=== PATIENT | male | born 1975 | race Caucasian/White ===

== ENCOUNTER 2018-08-20 16:57 | Emergency (ER) | payer SELFPAY ==
[2018-08-20] MEDS ORDERED: Morphine 2 MG/ML Syringe IVPUSH ONE (17:09)
[2018-08-20] MEDS ORDERED: Diphtheria,Pertussis(Acell),Tetanus Vaccine 0.5 ML Syringe IM ONE (17:09)
[2018-08-20] MEDS ORDERED: cefTRIAXone 1 GM in Premix Bag 1 BAG IV ONE (17:42)
--- NOTE | 2018-08-20 18:04 | CR ---
2 views of the left wrist. INDICATION: Injury. Extensive soft tissue injury IMPRESSION: IMPRESSION: Metallic foreign body projecting at the base of the 1st metacarpal. Large soft tissue injury in the distal forearm on the ventral aspect. No osseous fracture. There are linear metallic body with increased density overlapping the soft tissues at the level of the distal shaft of the ulna. However this is only seen on the frontal view. Dictated by Dmitriy Pope MD @ Aug 20 2018 6:02PM Signed by Dr. Dmitriy Pope @ Aug 20 2018 6:04PM
[2018-08-20] MEDS ORDERED: Lidocaine 1% 10 ML MDV INJECT ONE (18:19)
[2018-08-20] MEDS ORDERED: Bacitracin Oint 1 GM U/D Packet TOP ONE (19:22)
[2018-08-20] MEDS ORDERED: Bacitracin Oint 1 GM U/D Packet ONE (19:24)
--- NOTE | 2018-08-20 19:26 | EDM.PDOC ---
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, he slipped bumping his left wrist on the active grinder gear wheel presents with gaping laceration on the anterior forearm 2 inches of the wrist, deep muscle tissue is involved however tendon function flexor and extensor is intact the entire limb neurovascularly intact Entire limb neurovascularly intact with normal capillary refill no bleeding on arrival, full motor and sensory is intact however he does describe numbness and tingling sensation to the tips of all fingers No fever nausea vomiting chills sweats no chest pain shortness breath headache dizziness palpitation no bowel or urine symptoms Review of systems: As per history of present illness and below otherwise all systems reviewed and negative. Past medical history: As per history of present illness and as reviewed below otherwise noncontributory. Surgical history: As per history of present illness and as reviewed below otherwise noncontributory. Social history: No reported history of drug or alcohol abuse. Family history: As per history of present illness and as reviewed below otherwise noncontributory. Physical exam: HEENT: Atraumatic, normocephalic, pupils reactive, negative for conjunctival pallor or scleral icterus, mucous membranes moist, throat clear, neck supple, nontender, trachea midline. Lungs: Clear to auscultation, breath sounds equal bilaterally, chest nontender. Heart: S1S2, regular, negative for clicks, rubs, or JVD. Abdomen: Soft, nondistended, nontender. Negative for masses or hepatosplenomegaly. Negative for costovertebral tenderness. Pelvis: Stable nontender. Genitourinary: Deferred. Rectal: Deferred. Extremities: Atraumatic, negative for cords or calf pain. Neurovascular unremarkable. Neuro: Awake, alert, oriented. Cranial nerves II through XII unremarkable. Cerebellum unremarkable. Motor and sensory unremarkable throughout. Exam nonfocal. Skin as per history of present illness otherwise unremarkable Diagnostics: [X-ray left wrist rule out foreign body ] Therapeutics: [Morphine 2 mg IV Rocephin 1 g IV Tetanus status is updated] Keflex [place] Wound is cleansed thoroughly and explored no foreign material appreciated Lidocaine 5 mL for anesthesia complications no complaint #5 4-0 Vicryl sutures interrupted to superficial muscle tissue with excellent approximation #10 4-0 Prolene sutures interrupted excellent skin approximation Bacitracin Telfa gauze dressing Cock-up splint for protection [facility] who [facility] formulate plan, pt discussed in detail, to come on he agrees to see him in his clinic at [facility] on Thursday Impression: [ laceration 6 cm linear, complex ] Foreign body noted near left thumb, this was previously known to the patient Definitive disposition and diagnosis as appropriate pending reevaluation and review of above. Left Wrist Pain Score (Numeric/FACES): 10 - Related Data Allergies Allergy/AdvReac Type Severity Reaction Status Date / Time No Known Allergies Allergy Verified 08/20/18 17:04 Home Meds: Home Meds . [No Known Home Meds] 08/20/18 [History] Past Medical History - Past Health History Medical/Surgical History: Denies Medical/Surgical History - Infectious Disease History Infectious Disease History: Reports: Chicken Pox Social & Family History - Family History Family Medical History: Noncontributory - Tobacco Use Smoking Status *Q: Never Smoker Second Hand Smoke Exposure: No - Caffeine Use Caffeine Use: Reports: Coffee - Recreational Drug Use Recreational Drug Use: No ED ROS GENERAL - Review of Systems Review Of Systems: See Below ED EXAM, SKIN/RASH Exam: See Below Course - Vital Signs Last Recorded V/S: Last Vital Signs Temp 98.9 F 08/20/18 17:05 Pulse 97 08/20/18 18:02 Resp 16 08/20/18 18:02 BP 141/87 H 08/20/18 18:02 Pulse Ox 93 L 08/20/18 18:02 - Orders/Labs/Meds Orders: Active Orders 24 hr Category Date Time Status Vaccines to be Administered [RC] PER UNIT ROUTINE Care 08/20/18 17:09 Active Meds: Medications Discontinued Medications Generic Name Dose Route Start Last Admin Trade Name Freq PRN Reason Stop Dose Admin Diphtheria/Tetanus/Acell Pertussis 0.5 ml 08/20/18 17:09 08/20/18 17:18 Adacel IM 08/20/18 17:10 0.5 ml .ONCE ONE Administration Ceftriaxone Sodium/Dextrose 1 50 mls @ 100 mls/hr 08/20/18 17:42 08/20/18 18: 00 gm/ Premix IV 08/20/18 18:11 100 mls/hr ONETIME ONE Administration Lidocaine HCl Confirm 08/20/18 18:23 08/20/18 18:28 Xylocaine-Mpf 1% Administered 08/20/18 18:24 Not Given Dose 10 mls @ as directed .ROUTE .STK-MED ONE Lidocaine HCl 10 ml 08/20/18 18:19 08/20/18 18:28 Xylocaine 1% INJECT 08/20/18 18:20 Not Given ONETIME ONE Lidocaine HCl 10 ml 08/20/18 18:27 Xylocaine-Mpf 1% INJECT 08/20/18 18:28 ONETIME ONE Morphine Sulfate 2 mg 08/20/18 17:09 08/20/18 17:17 Morphine IVPUSH 08/20/18 17:10 2 mg ONETIME ONE Administration Departure - Departure Time of Disposition: 19:26 Disposition: Home, Self-Care 01 Condition: Good Clinical Impression: Laceration - Discharge Information Referrals: PCP,None [Primary Care Provider] - Additional Instructions: Medication as prescribed Keflex 500 by mouth twice a day #20 no refill [place] as prescribed for pain #10 no refill no driving or alcohol on this medication Follow-up with hand specialist [facility], [place] on Thursday, he can be reached with her switchboard at [phone] to schedule clinic appointment in time You have mentioned that you may be traveling back to [place] this weekend and I would strongly urge you to follow-up with a hand specialist if you elect to return home for care on Thursday or with primary care for referral to a hand specialist The following information is given to patients seen in the emergency department who are being discharged to home. This information is to outline your options for follow-up care. We provide all patients seen in our emergency department with a follow-up referral. The need for follow-up, as well as the timing and circumstances, are variable depending upon the specifics of your emergency department visit. If you don't have a primary care physician on staff, we will provide you with a referral. We always advise you to contact your personal physician following an emergency department visit to inform them of the circumstance of the visit and for follow-up with them and/or the need for any referrals to a consulting specialist. The emergency department will also refer you to a specialist when appropriate. This referral assures that you have the opportunity for follow-up care with a specialist. All of these measure are taken in an effort to provide you with optimal care, which includes your follow-up. Under all circumstances we always encourage you to contact your private physician who remains a resource for coordinating your care. When calling for follow-up care, please make the office aware that this follow-up is from your recent emergency room visit. If for any reason you are refused follow-up, please contact the [facility] emergency department at and asked to speak to the emergency department charge nurse. - My Orders Last 24 Hours: My Active Orders 08/20/18 17:09 Vaccines to be Administered [RC] PER UNIT ROUTINE - Assessment/Plan Last 24 Hours: My Active Orders 08/20/18 17:09 Vaccines to be Administered [RC] PER UNIT ROUTINE
== END 2018-08-20 19:33 | disposition home or self-care (01) ==
LOC: MW.ED 16:57
DX: S61.512A Laceration without foreign body of left wrist, initial encounter (principal); Z23 Encounter for immunization; W31.89XA Contact with other specified machinery, initial encounter
CPT/HCPCS: 12032; 73100; 90471; 90715; 96365; 96375; 99283; A4217; J0696; J2001; J2270